=== PATIENT | female | born 1965 | race Caucasian/White ===

== ENCOUNTER 2019-02-05 08:18 | Day surgery (SDC) | payer BC ==
[2019-02-05] VITALS (13 sets, daily range): BP systolic 128–149; BP diastolic 65–88; PULSE 72–91; RESP 11–18; Ht 162.6 cm; Wt 68.2 kg
[~2019-02-05] VITALS: Ht 162.6 cm; Wt 68.2 kg
[~2019-02-05 08:18] MED LIST: SERT100T
[2019-02-05] MEDS ORDERED: LACTATED RINGER'S 1,000 ML IV SCH (11:00)
--- NOTE | 2019-02-05 11:29 | PREAC ---
Date/Time of Note Date/Time of Note DATE: 02/05/19 TIME: 11:25 Anesthesia Eval and Record Evaluation Time Pre-Procedure Interview DATE: 02/05/19 TIME: 11:25 Age 54 Sex female NPO: 8 hrs Preoperative diagnosis postmenopausal bleeding Planned procedure D&C Past Medical History Past Medical History: Includes (endometriosis) Psych: Depression Surgery & Anesthesia Issues No known issue (R hip replacement, laparotomy, appe) Meds Anticoagulation: No Beta Toño within 24 hr: No Reason Beta Toño not given: Pt. not on B-Toño Reported Medications Sertraline Hcl* (Zoloft*) 100 Mg Tablet 03/12/10 Current Medications Lactated Ringer's 1,000 ml @ 25 mls/hr Q24H IV Last administered on 02/05/19at 11:10; Admin Dose 25 MLS/HR; Start 02/05/19 at 11:00; Stop 02/05/19 at 15:00 Meds reviewed: Yes Allergies Coded Allergies: acetaminophen (Verified Allergy, Mild, 03/12/10) cephalexin (Verified Allergy, Mild, 02/05/19) hydrocodone (Verified Allergy, Mild, 03/12/10) Allergies Reviewed: Yes Labs/Studies Labs Reviewed: Reviewed by anesthesiologist Blood Bank Test 02/05/19 09:00 Antibody Screen NEGATIVE Blood Type O POSITIVE test: N/A Pre-procedure Exam Last vitals Vital Signs Date Temp Pulse Resp B/P (MAP) Pulse Ox O2 O2 Flow FiO2 Time Delivery Rate 02/05/19 97.9 91 16 128/88 98 Room Air 09:12 (101) Airway: Adequate mouth opening, Adequate thyromental dist Mallampati: Mallampati II Teeth: Normal Lung: Normal Heart: Normal ASA Physical Status ASA physical status: 2 Emergency: None Planned Anesthetic General/MAC: ETT, LMA Pre-operative Attestations Prior to commencing anesthesia and surgery, the patient was re-evaluated, there was verification of: *The patient's identity *The results of appropriate recent lab work and preoperative vital signs *The above evaluation not changing prior to induction *Anesthetic plan, risk benefits, alternative and complications discussed with patient/family; questions answered; patient/family understands, accepts and wishes to proceed. ELVA MONSIVAIS Feb 05, 2019 11:28
[2019-02-05] MEDS ORDERED: DESFLURANE 15 MIN ONE (11:40)
[2019-02-05] MEDS ORDERED: CLINDAMYCIN 600 MG/50 ML D5W IVPB IVPB ONE (11:40)
[2019-02-05] MEDS ORDERED: ROCURONIUM 50 MG INJ ONE (11:48)
[2019-02-05] MEDS ORDERED: NEOSTIGMINE 3 MG/3 ML SYRINGE ONE (11:48)
[2019-02-05] MEDS ORDERED: CEFAZOLIN 1 GM INJ ONE (11:48)
[2019-02-05] MEDS ORDERED: GLYCOPYRROLATE 0.4 MG INJ ONE (11:48)
[2019-02-05] MEDS ORDERED: PROPOFOL 20 ML ONE (11:48)
[2019-02-05] MEDS ORDERED: MIDAZOLAM 1 MG/ML 2 ML INJ ONE (11:49)
[2019-02-05] MEDS ORDERED: ONDANSETRON 4 MG INJ ONE (11:49)
[2019-02-05] MEDS ORDERED: DEXAMETHASONE 4 MG/ML 5 ML INJ ONE (11:49)
[2019-02-05] MEDS ORDERED: FENTAnyl 50 MCG/ML VIAL ONE (11:49)
--- NOTE | 2019-02-05 12:59 | PAC ---
Date/Time of Note Date/Time of Note DATE: 02/05/19 TIME: 12:59 Post-Anesthesia Notes Post-Anesthesia Note Last documented vital signs Vital Signs Date Temp Pulse Resp B/P (MAP) Pulse Ox O2 O2 Flow FiO2 Time Delivery Rate 02/05/19 97.9 91 16 128/88 98 Room Air 09:12 (101) Activity: WNL Respiratory function: WNL Cardiovascular function: WNL Mental status: Baseline Pain reasonably controlled: Yes Hydration appropriate: Yes Nausea/Vomiting absent: Yes Minor Hauser M.D. Feb 05, 2019 12:59
[2019-02-05] MEDS ORDERED: IPRATROPIUM (NEB) 0.5 MG/2.5 ML AMP HHN PRN (13:00)
[2019-02-05] MEDS ORDERED: HYDROmorphONE 1 MG/5 ML IV SYRINGE IV PRN (13:00)
[2019-02-05] MEDS ORDERED: TRIMETHOBENZAMIDE 100 MG/ML VIAL IM PRN (13:00)
[2019-02-05] MEDS ORDERED: FENTAnyl 50 MCG/ML VIAL IV PRN ×3 (13:00)
[2019-02-05] MEDS ORDERED: ALBUTEROL 0.083% (NEB) 2.5 MG/3 ML AMP HHN PRN (13:00)
[2019-02-05] MEDS ORDERED: DIPHENHYDRAMINE 50 MG INJ IV PRN (13:00)
[2019-02-05] MEDS ORDERED: LABETALOL HCL 20MG INJ IV PRN (13:00)
[2019-02-05] MEDS ORDERED: MEPERIDINE 25 MG INJ IV PRN (13:00)
[2019-02-05] MEDS ORDERED: hydrALAzine 20 MG INJ IV PRN (13:00)
[2019-02-05] MEDS ORDERED: MIDAZOLAM 1 MG/ML 2 ML INJ IV PRN (13:00)
[2019-02-05] MEDS ORDERED: ONDANSETRON 4 MG INJ IV PRN (13:00)
[2019-02-05] MEDS ORDERED: EPHEDrine 25 MG/5 ML SYG IV PRN (13:00)
--- NOTE | 2019-02-05 13:17 | SIPON ---
Date/Time of Note Date/Time of Note DATE: 02/05/19 TIME: 13:15 Operative Report Preoperative Diagnosis Postmenopausal bleeding Postoperative Diagnosis Same Operation/Procedure Performed D&C Surgeon Heather Falcon MD technician assistant None Anesthesia: general Estimated blood loss: minimal Transfusion Required none Specimen ECC and EMC Grafts/Implants none Complications none HEATHER FALCON MD Feb 05, 2019 13:17
--- NOTE | 2019-02-05 14:08 | PREOPHP ---
DATE OF ADMISSION: 02/05/2019 HISTORY OF PRESENT ILLNESS: A 54-year-old female 1, para 0, AB 1, last menstrual period abou t 2 years prior to admission, was admitted with history of postmenopausal bleeding. PAST MEDICAL HISTORY: Depression and endometriosis. PAST SURGICAL HISTORY: Laparoscopy and laparotomy, lysis of adhesions for endometriosis, hip replace ment. ALLERGIES: VICODIN. FAMILY HISTORY: Noncontributory. PHYSICAL EXAMINATION: VITAL SIGNS: The patient is afebrile. Vital signs stable. HEAD, NECK AND CHEST: Within normal limits. ABDOMEN: Soft, nontender, nondistended. PELVIC: Normal. EXTREMITIES: Within normal limits. NEUROLOGIC: Within normal limits. IMPRESSION: Postmenopausal bleeding. PLAN: Dilation and curettage. Risks, benefits and alternatives of procedure were explained to the p atient. The patient said she understood and gave informed consent for the procedure. Dictated By: HEATHER MONTELONGO/PRASHANTH Conf#: [id number] DID#: [id number]
--- NOTE | 2019-02-05 16:19 | OPR ---
DATE OF OPERATION: 02/05/2019 PREOPERATIVE DIAGNOSIS: Postmenopausal bleeding. POSTOPERATIVE DIAGNOSIS: Postmenopausal bleeding. OPERATION: Dilation and curettage. SURGEON: Heather Botello MD ANESTHESIA: General. ANESTHESIOLOGIST: Minor Hauser MD PROCEDURE IN DETAILS: The patient was taken to operating room, placed on the operating table in supine position. After adequate general anesthesia was given, the patient was placed in dorsal lithotomy position. The area was prepared and draped in the usual sterile fashion. Speculum was placed inside the vagina and tenaculum was used to grasp the anterior lip of the cervix. Using Kevorkian curet, endocervical curettage was performed and specimen obtained was sent to pathology. Next using cervical dilators, the cervical os was dilated. Using a sharp curet, endometrial curettage was performed and specimen obtained was sent to pathology. All the instruments were removed. Adequate hemostasis was assured. The patient tolerated the procedure well. The patient was awakened from anesthesia and transferred to recovery in stable condition. Estimated blood loss was minimal. All counts were correct. Dictated By: HEATHER MONTELONGO/PRASHANTH Conf#: [id number] DID#: [id number]
== END 2019-02-05 14:28 | disposition home or self-care (01) ==
LOC: SDS 08:18
PROVIDERS: ATTEND Obstetrics & Gynecology
DX: N95.0 Postmenopausal bleeding (principal)
CPT/HCPCS: 58120; 86850; 86900; 86901; 88305; J1100; J2250; J2405; J2710; J3010; Z7512; Z7610; J0690